=== PATIENT | female | born 1990 | race Caucasian/White ===

== ENCOUNTER → 2019-03-09 10:01 | Outpatient (CLI) | payer OTHER, SELFPAY ==
--- NOTE | 2019-03-09 10:04 | DI.US.S_ITS ---
PROCEDURE: US OB <= 14 WEEKS FETUS INDICATIONS: DATING AND VIABILITY OUTSIDE/PRIOR DATING DATA: Last menstrual period (LMP): 01/16/19. LMP-based estimated date of delivery (MARTI): 10/23/19. First dating scan (date and location): 03/09/19. Estimated date of delivery (MARTI) from first dating scan: 10/19/18. TECHNIQUE: Real-time scanning was performed of the fetus and maternal pelvic organs, with image documentation. Endovaginal scanning was also performed to better visualize the fetus and maternal ovaries. COMPARISON: None. FINDINGS: Embryo: [place]-rump length 1.6 cm correlates with a gestational age of 8 weeks 0 days, plus or -5 days. heart rate at 163 beats per minute is present. Measurement variability in dating: +/- 4 weeks by LMP, +/- 7 days by mean sac diameter (use before 6 weeks gestation if crown-rump length not able to be measured), +/- 5 days by crown-rump length (up to 8 weeks 6 days gestation), +/- 7 days by crown-rump length (up to 13 weeks 6 days gestation). Maternal organs: Ovaries: corpus luteum cyst on the right, not seen on the left due to bowel gas.. Limited images through the kidneys demonstrate no hydronephrosis. IMPRESSION: Single living intrauterine gestation with delivered a projected be centered on 10/19/18, plus or -5 days. Followup anatomic survey at 21 weeks gestation is recommended. Dictated by: Familia Carranza M.D. on 03/09/2019 at 14:16 Approved by: Familia Carranza M.D. on 03/09/2019 at 14:17
[2019-03-09 11:52] LABS: Appearance Urine UA CLEAR; Bilirubin Urine UA NEGATIVE (NEGATIVE); Color Urine UA YELLOW; Glucose Urine UA NEGATIVE (Negative); Ketones Urine UA NEGATIVE (NEGATIVE); Leukocyte Esterase Urine UA TRACE (NEGATIVE); Nitrite Urine UA NEGATIVE (Negative); Occult Blood Urine UA NEGATIVE (Negative); Protein Urine UA NEGATIVE (Negative); Specific Gravity Urine UA <=1.005 (1.000-1.035); Urobilinogen Urine UA 0.2 E.U./dL (0.2); pH Urine UA 6.5 (4.5-8.0)
[2019-03-09 11:55] LABS: Bacteria Urine None Seen; RBC Urine None Seen (0-5/HPF)
[2019-03-09 12:05] LABS: WBC Urine 0-1/HPF (0-5/HPF)
[2019-03-09 12:09] LABS: Add Manual Diff / Slide Review NO; Basophils Absolute Auto 100 /uL (0-100); Basophils Percent Auto 0.4 % (0-2); Eosinophils Absolute Auto 300 /uL (0-450); Hematocrit 40.2 % (36-46); Hemoglobin 13.5 g/dL (12.0-16.0); Lymphocytes Absolute Auto 2400 /uL (1100-4500); Lymphocytes Percent Auto 17.9 % (25-40); Mean Corpuscular HGB Conc 33.6 % (30-36); Mean Corpuscular Hemoglobin 28.2 PG (26-34); Monocytes Absolute Auto 900 /uL (0-900); Monocytes Percent Auto 6.5 % (3-14); Neutrophils Absolute Auto 9900 /uL (1500-7000); Neutrophils Percent Auto 73.2 % (50-75); Platelet Count 329 X10^3/uL (150-400); Red Blood Cell Count 4.78 X10^6/uL (4.0-5.2); Red Cell Distribution Width 14.2 % (11.6-14.8); White Blood Cell Count 13.5 X10^3/uL (4.5-11.0)
[2019-03-09 12:37] LABS: Rubella Antibody IgG 32.4 IU/mL (>15)
[2019-03-09 12:59] LABS: HIV 1 and 2 Antibody NEGATIVE (NEGATIVE); Hep C Virus Ab w/Reflex Quant NEGATIVE s/c (NEGATIVE)
[2019-03-09 16:34] LABS: Hepatitis B Surface Antigen NEGATIVE s/c (NEGATIVE)
[2019-03-11 14:19] LABS: RPR Screen Nonreactive (Nonreactive)
== END ==
PROVIDERS: PCP Family Medicine; Visit Provider Family Medicine
DX: Z34.81 Encounter for supervision of other normal pregnancy, first trimester (principal); Z3A.08 8 weeks gestation of pregnancy
CPT/HCPCS: 36415; 76801; 80055; 81003; 81015; 86703; 86787; 86803; 86850; 86900; 86901; 87077; 87086; 87147

== ENCOUNTER → 2019-05-14 15:11 | Outpatient (CLI) | payer OTHER, SELFPAY ==
[2019-05-21 10:55] LABS: AFP, Serum 24.7 ng/mL; Cigarette Smoker NO; Donated Egg NOT GIVEN; Donor Egg Age NOT GIVEN; Estriol, Free 0.96 ng/mL; Inhibin A, Dimeric 78 pg/mL; Maternal Ethnicity CAUCASIAN; Maternal Weight 220 lbs; Number of Fetuses 1; Previous Pregnancy Down Syndro NOT GIVEN; hCG, MoM 0.61
== END ==
PROVIDERS: PCP Family Medicine; Visit Provider Family Medicine
DX: Z34.92 Encounter for supervision of normal pregnancy, unspecified, second trimester (principal)
CPT/HCPCS: 36415; 82105; 82677; 84702; 86336

== ENCOUNTER → 2019-05-26 14:34 | Outpatient (CLI) | payer OTHER, SELFPAY ==
--- NOTE | 2019-05-26 14:35 | DI.US.S_ITS ---
PROCEDURE: US OB >= 14 WEEKS FETUS INDICATIONS: ANATOMY SCAN OUTSIDE/PRIOR DATING DATA: Last menstrual period (LMP): 01/16/19. LMP-based estimated date of delivery (MARTI): 10/23/19. First dating scan (date and location): 03/09/19. Estimated date of delivery (MARTI) from first dating scan: 10/19/19. TECHNIQUE: Real-time scanning was performed of the fetus, with image documentation and biometric measurements. Endovaginal scanning: Not performed COMPARISON: None. FINDINGS: General: A single living intrauterine gestation is present. Presentation: Variable Placenta: Placental position is posterior, without previa. Amniotic fluid index: 16.5 cm, normal range is 5-24 cm. heart rate: 147 beats per minute. Maternal cervical canal: 4.1 cm long. Normal lower limit is 2.5 cm. biometrics: Biparietal diameter: 4.6 cm, 19 weeks 6 days Head circumference: 16.9 cm, 19 weeks 4 days Abdominal circumference: 15.5 cm, 20 week one day Femur length: 3.1 cm, 19 week 4 day Estimated gestational age from initial scan: 19 week one day Composite gestational age from present scan: 19 week 5 days Estimated weight and percentile: 317 g, 85% Measurement variability for biometric dating: +/- 7 days from 14 weeks to 15 weeks 6 days gestation, +/- 10 days from 16 weeks to 21 weeks 6 days gestation, +/- 2 weeks from 22 weeks to 27 weeks 6 days gestation, +/- 3 weeks for 28 weeks gestation or later. weight reference: 4500 g or EFW >90/95% is considered macrosomia or large for gestational age. EFW <10% is small for gestational age. EFW 5% or less is considered intra-uterine growth restriction. Anatomic survey: Neuro: Ventricles are non-dilated at less than 10 mm. Cisterna magna is normal at 3-11 mm. Cerebellum is normal in size and morphology. Nuchal skin fold: Normal at less than 6 mm between 14-21 weeks gestational age. Face: Nose and lips, facial profile are normal. Spine: No evidence for spina bifida. Heart: 4-chambered heart is present, with normal ventricular outflow tracts. Diaphragm: Diaphragm is intact. Stomach: Left-sided stomach is present. Kidneys: No hydronephrosis. Bilateral renal pelvis measures 3.8 mm. Normal is less than 5 mm in 2nd trimester, less than 7 mm in 3rd trimester. Cord: 3-vessel cord has orthotopic insertion. Bladder: Normal in size. Extremities: All 4 extremities identified. IMPRESSION: Single live intrauterine with normal anatomic survey. Dictated by: Addy Saini M.D. on 05/26/2019 at 17:53 Approved by: Addy Saini M.D. on 05/26/2019 at 17:56
== END ==
PROVIDERS: PCP Family Medicine; Visit Provider Family Medicine
DX: Z34.92 Encounter for supervision of normal pregnancy, unspecified, second trimester (principal)
CPT/HCPCS: 76811

== ENCOUNTER → 2019-08-01 08:28 | Outpatient (CLI) | payer OTHER, SELFPAY ==
[2019-08-01 10:20] LABS: Hematocrit 33.9 % (36-46); Hemoglobin 11.4 g/dL (12.0-16.0)
[2019-08-01 10:25] LABS: GTT (PREG) 1 Hour PP 50gm Dose 124 mg/dL (76-139)
== END ==
PROVIDERS: PCP Family Medicine; Visit Provider Family Medicine
DX: Z34.90 Encounter for supervision of normal pregnancy, unspecified, unspecified trimester (principal); Z3A.26 26 weeks gestation of pregnancy
CPT/HCPCS: 36415; 82950; 85014; 85018

== ENCOUNTER → 2019-09-25 10:02 | Outpatient (CLI) | payer OTHER, SELFPAY ==
[2019-09-26 13:17] LABS: Strep Grp B PCR NEG for Grp B Strep
== END ==
PROVIDERS: PCP Family Medicine; Visit Provider Family Medicine
DX: Z3A.36 36 weeks gestation of pregnancy (principal)
CPT/HCPCS: 87653

== ENCOUNTER 2019-10-26 17:51 | Inpatient (IN) | payer OTHER, SELFPAY ==
[2019-10-26] MEDS: DINOPROSTONE VAG (CERVIDIL) 10 MG VAG (19:00)
[2019-10-26] MEDS: LACTATED RINGERS 1,000 ML 100 ML IV (19:00)
[2019-10-26 19:17] VITALS: BP 123/80
[2019-10-26 19:30] LABS: Add Manual Diff / Slide Review NO; Basophils Absolute Auto 100 /uL (0-100); Basophils Percent Auto 0.5 % (0-2); Eosinophils Absolute Auto 100 /uL (0-450); Eosinophils Percent Auto 1.1 % (2-4); Hematocrit 33.7 % (36-46); Lymphocytes Absolute Auto 1900 /uL (1100-4500); Lymphocytes Percent Auto 15.3 % (25-40); Mean Corpuscular HGB Conc 32.5 % (30-36); Mean Corpuscular Hemoglobin 27.2 PG (26-34); Mean Corpuscular Volume 83.7 fL (80-100); Monocytes Absolute Auto 800 /uL (0-900); Monocytes Percent Auto 6.5 % (3-14); Neutrophils Absolute Auto 9700 /uL (1500-7000); Neutrophils Percent Auto 76.6 % (50-75); Platelet Count 241 X10^3/uL (150-400); Red Blood Cell Count 4.03 X10^6/uL (4.0-5.2); Red Cell Distribution Width 16.1 % (11.6-14.8); White Blood Cell Count 12.7 X10^3/uL (4.5-11.0)
[2019-10-26] MEDS: ZOLPIDEM 5 MG TABLET PO (22:56)
--- NOTE | 2019-10-27 03:50 | PM.OBHP.1 ---
OB HPI Date/Time Date of admission: 10/26/19 Date Patient Seen: 10/27/19 History of Present Condition Chief complaint: INDUCTION : 2 Para: 1 Estimated Date of Delivery: 10/22/19 Estimated Gestational Age (weeks): 40w5d Narrative: Emily Escudero is a 29 year old at 40 weeks and 5 days gestation here for elective induction. Her is currently deployed at home for a short period of time. has been uncomplicated with normal ultrasounds and labs. She does have a history of genital herpes and has been taking prophylactic acyclovir the last month of . Indications Indication for induction OB: other (Elective, home from deployment) History of Present care: good care, initiated at week # (8), number of visits (13) and pounds weight gain (31) Dating criteria: LMP confirmed by 1st trimester US Ultrasounds: normal mid trimester US Obstetrical complications: none Medical complications: none Preadmission Labs Blood type: O (+) positive -: Antibody screen: negative, GBS status: negative, HBsAG: negative, HIV: negative and RPR/VDLR: negative -: Rubella: immune and Varicella: immune HCT: 40.2 HCAB: negative PAP: Normal Quad screen: Normal Urine: Negative 1 hr GTT: 124 Prior (ies) History: 04/17/15 at 40 weeks, 8 lb 10 oz female. SROM without active labor followed by Pitocin. Epidural worked on 1/2 of her body and she had a syncopal event shortly after delivery. Breast-fed 11 months. Evaluation Evaluation Baseline heart rate: 130 Variability: Moderate (11-25) monitor accelerations: Present monitor decelerations: Absent Contraction Frequency (minutes): 5 Uterine Contraction Intensity: Mild Category of Tracing: I Cervical dilation (cm): 2 Cervical effacement (%): 75 station: -1 Laboratory results: Laboratory Tests 10/26/19 10/26/19 18:35 18:35 WBC 12.7 H RBC 4.03 Hgb 11.0 L Hct 33.7 L MCV 83.7 MCH 27.2 MCHC 32.5 RDW 16.1 H Plt Count 241 Neut % (Auto) 76.6 H Lymph % (Auto) 15.3 L [place] % (Auto) 6.5 Eos % (Auto) 1.1 L Baso % (Auto) 0.5 Neut # (Auto) 9700 H Lymph # (Auto) 1900 [place] # (Auto) 800 Eos # (Auto) 100 Baso # (Auto) 100 Blood Type O Positive Antibody Screen Negative PFSH Medical History Herpes genitalis (Chronic) Normal colonoscopy (Resolved) Social History marital status: number of children: 1 occupational status: employed Smoking Status: Never smoker alcohol intake: former substance use type: does not use Meds Home Medications and Allergies Home Medications Medication Instructions Recorded Confirmed Type prenat.vits,salud,uvd-cpfm-triqe 1 tab PO DAILY 03/09/19 10/27/19 History Double Electric Breast Pump and #1 each 10/09/19 10/09/19 Rx supplies Allergies Allergy/AdvReac Type Severity Reaction Status Date / Time sulfamethoxazole AdvReac Mild Hives Verified 03/16/19 13:56 [From Bactrim] trimethoprim [From Bactrim] AdvReac Mild Hives Verified 03/16/19 13:56 Review of Systems Review of Systems ROS Unobtainable: All systems reviewed & are unremarkable except as noted in HPI and below Exam Vital Signs (past 8 hours): Temperature 36.2? blood pressure 105/60 heart rate 77 Const General: healthy appearing and comfortable HENMT Head: normal to inspection Ears: hearing grossly normal bilaterally Nose: external nose normal Face and sinus: normal facial exam Mouth: oral mucosae normal Eyes General: appearance normal, both eyes and all related structures Neck Neck: normal visual inspection Resp Effort & Inspection: normal respiratory effort Auscultation: clear to auscultation bilaterally Cardio Rate: regular rate Rhythm: regular rhythm Heart Sounds: no murmurs GI Other: Gravid External Female Exam: external appearance normal Manual OB Exam: dilated 2, effaced 75% and station -1 Presentation: vertex Estimated Weight (lbs): 8 Back/Spine/Pelvis Back: normal to inspection Skin General: no rashes or lesions noted Extrem General: normal to inspection and no pedal edema Objective Labs Result Diagrams: 10/26/19 18:35 Labs: Laboratory Results - last 24 hr 01/27/20 01/27/20 18:35 18:35 WBC 12.7 H RBC 4.03 Hgb 11.0 L Hct 33.7 L MCV 83.7 MCH 27.2 MCHC 32.5 RDW 16.1 H Plt Count 241 Neut % (Auto) 76.6 H Lymph % (Auto) 15.3 L [place] % (Auto) 6.5 Eos % (Auto) 1.1 L Baso % (Auto) 0.5 Neut # (Auto) 9700 H Lymph # (Auto) 1900 [place] # (Auto) 800 Eos # (Auto) 100 Baso # (Auto) 100 Blood Type O Positive Antibody Screen Negative Assessment and Plan Assessment and Plan Assessment and Plan narrative: 29-year-old at 40 weeks and 5 days gestation here for elective induction. is home from deployment for a short period of time. Patient received Cervidil overnight. Rodriguez score this morning is 8. GBS negative. Plan - Pitocin per protocol - Epidural upon request - Anticipate
[2019-10-27] MEDS: LACTATED RINGERS 1,000 ML 100 ML IV ×2 (07:57→16:50)
[2019-10-27] MEDS: OXYTOCIN PREMIX 30 UNIT/500 ML PLAST..BAG IV (08:01)
--- NOTE | 2019-10-27 12:42 | PM.OBPNLAB ---
Date/Time Date Patient Seen: 10/27/19 Time Patient Seen: 12:42 Pain Control Pain control: tolerating well Comments: Getting more uncomfortable with contractions, rates as 4-5/10. Pelvic Exam Dilation (cm): 3 Effacement (%): 80 station: -1 Amniotic membrane status: Ruptured ([place] tinged fluid) Contractions Pitocin rate (mU/min): 12 Contraction frequency (min): 2 Contraction pattern: Regular Contraction intensity: Moderate Status status: Category l Heart Rate Baseline: 130 Monitor Accelerations: Present Monitor Decelerations: Absent Monitor Variability: Moderate Assessment and Plan Assessment: induction ongoing Plan: continuous present management
--- NOTE | 2019-10-27 16:25 | PM.OBPNLAB ---
Date/Time Date Patient Seen: 10/27/19 Time Patient Seen: 16:25 Pain Control Pain control: tolerating well and epidural Comments: Comfortable with epidural Pelvic Exam Dilation (cm): 5 Effacement (%): 80 station: -1 Amniotic membrane status: Ruptured ([place] tinged fluid) Contractions Pitocin rate (mU/min): 16 Contraction frequency (min): 2 Contraction pattern: Regular Contraction intensity: Strong/Firm Status status: Category ll Heart Rate Baseline: 130 Monitor Accelerations: Present Monitor Decelerations: Variable Monitor Variability: Moderate Assessment and Plan Assessment: induction ongoing Plan: continuous present management
--- NOTE | 2019-10-27 17:48 | P.PCNOB_ITS ---
Labor & Delivery Delivery date: 10/27/19 Cervical ripening method: per Cervidil protocol Induction method: per pitocin protocol Delivery augmentation: rupture of membranes Delivery monitor: external FHT Route of delivery: L&D Laceration Description: Vaginal - 2nd Degree Delivery repair: vicryl Estimated blood loss (mL): 350 Anesthesia type: Epidural Narrative: Patient is a 29-year-old at 40 weeks and 5 days who gave on 10/27/19 at 5:25 p.m.. MARTI: 10/22/19 Hospital problems: Forty weeks Epidural analgesia STAGE I: Labor Patient was brought in for cervical ripening with Cervidil then given Pitocin per protocol. Artificial rupture of membranes with clear fluid at 12:30 p.m.. Patient received an epidural adequate pain control. heart tones were category 1 and 2 throughout stage I due to intermittent variable decelerations. STAGE II: Delivery Patient was complete and pushed over 2 contractions to deliver a vigorous male in the left occiput anterior position with the right hand near the face. Infant was immediately placed on mother's abdomen. Cord was clamped and cut after 1 minutes delay. Apgars were 9 and 9. No resuscitation of the required beyond drying, stimulating and suction. STAGE III: Placenta/Cord Placenta delivered at 17:28 after active management and appeared intact with a three-vessel cord. Pitocin bolus given after delivery of placenta. A short second-degree vaginal laceration was repaired in the usual fashion with 4 0 Vicryl. Hemostasis achieved. Fundus firm below umbilicus. EBL: 350 mL. Needle and sponge counts were correct. The vagina was inspected and no items were left in situ. Patient was doing well with her and at bedside. [place] Baby 1: gender: Male Presentation: vertex Placenta delivery description: Spontaneous cord vessel description: 3 Vessels score (1 min): 9 score (5 min): 9
[2019-10-27] MEDS: DERMOPLAST SPRAY 20% 60 ML 1 SPRAY TOP (20:16)
[2019-10-27] MEDS: LANOLIN OINT 7 GM 1 APPLIC TOP (20:16)
[2019-10-27] MEDS: ACETAMINOPHEN 325 MG TABLET 650 MG PO (23:47)
[2019-10-27] MEDS: IBUPROFEN 600 MG TABLET PO (23:47)
[2019-10-28 07:00] LABS: Hemoglobin 9.4 g/dL (12.0-16.0)
[2019-10-28] MEDS: DOCUSATE 100 MG CAPSULE PO (07:28)
[2019-10-28] MEDS: IBUPROFEN 600 MG TABLET PO (07:29)
[2019-10-28] MEDS: PRENATAL VIT,CALC/IRON/FOLIC 1 TABLET 1 TAB PO (07:29)
--- NOTE | 2019-10-28 08:30 | PM.OBDS.1 ---
Discharge Providers Provider Date of admission: 10/26/19 17:51 Discharge Date: 10/28/19 Primary care physician: Marta Link DO Consults: 10/28/19 17:47 Consult to Visiting Nurse Routine Comment: Discharge provider: Marta Link DO Summary Hospital Course Date Patient Seen: 10/28/19 Time Patient Seen: 08:17 Procedures: Spontaneous vaginal delivery Epidurla analgesia Hospital Course: Patient is a 29 year old G2 now P2 after uncomplicated on 10/26/19 at 40 weeks and 5 days gestation. Patient was brought in for elective induction as her was home from deployment. She received Cervidil for cervical ripening followed by pitocin and AROM. Received an epidural with adequate pain control. She progressed well and delivered a vigorous male infant. A second degree vaginal laceration was repaired in the usual fashion. course uncomplicated. Patient was ambulating, voiding and passing flatus. Vaginal bleeding moderate and decreasing. Pain controlled with minimal ibuprofen. going well, no issues in the . Patient advised to call for fevers, bleeding through more than a pad an hour or severe pain. Peripartum Data Delivery Method: Natural Vaginal Laceration description: Vaginal - 2nd Degree complications: none [place] 1: Gender: Male Disposition of : home Discharge Diagnosis (1) 40 weeks gestation of : Status: Acute (2) Spontaneous vaginal delivery: Status: Acute Problem Details: x2 Status at Discharge Functional status at discharge: independent ambulation Overall status at discharge: patient is progressing back to baseline Time Spent with Patient Time attestation: Total time spent providing and/or coordinating discharge services: Time spent: Less than 30 minutes Objective Labs Result Diagrams: 10/28/19 06:32 Labs: Laboratory Results - last 24 hr 10/28/19 06:32 Hgb 9.4 L Hct 28.0 L Exam Vital Signs (past 8 hours): Temperature 98.4? blood pressure 129/80 heart rate 111 respirations 20 Narrative Exam Narrative: General: Awake and alert, no acute distress. HEENT: NCAT, EOMI, moist oral mucosa CV: Regular rate and rhythm, no murmurs, rubs or gallops Lungs: CTAB, no wheezes, rales, or rhonchi Abdomen: Soft, nontender; bowel tones active; uterus firm 1 cm below umbilicus Extremities: Warm, no edema, 2+ pedal pulses bilaterally Discharge Plan Discharge Plan Patient Disposition: Home Discharge orders & Medications Prescriptions: New docusate sodium [DOK] 100 mg Capsule 100 mg PO DAILY Qty: 30 RF: 0 ibuprofen 600 mg Tablet 600 mg PO Q6HR PRN (Reason: Pain, Mild (1-3)) Qty: 30 RF: 0 ferrous gluconate 236 mg (27 mg iron) tablet 236 mg PO DAILY Qty: 30 RF: 0 Continued (DME) Double Electric Breast Pump and supplies Qty: 1 RF: 0 prenat.vits,salud,aen-luvw-jahrj tablet 1 tab PO DAILY RF: 0 Follow up/Referrals: Marta Link DO [Primary Care Provider] - 6 Weeks (Appointment with , Thrusday, October at 11:15 am) Visit Report/Discharge Packet Instructions: DI for Labor and Delivery, Vaginal Visit Report Forms: Patient Portal/API, Stroke Signs & Symptoms Discharge Data Primary Care Provider: Marta Link Discharges patient from system. Discharge Date/Time: 10/28/19 15:53
[2019-10-28 12:53] VITALS: BP 123/80
[2019-10-28 14:57] VITALS: BP 130/81; PULSE 82; RESP 16; TEMP 36.5
== END 2019-10-28 15:53 | disposition home or self-care (01) | DRG 807 ==
PROVIDERS: Admitting Provider Family Medicine; PCP Family Medicine; Visit Provider Family Medicine
DX: O98.32 Other infections with a predominantly sexual mode of transmission complicating childbirth (principal); B00.9 Herpesviral infection, unspecified; O70.1 Second degree perineal laceration during delivery; Z37.0 Single live birth; Z3A.40 40 weeks gestation of pregnancy
CPT/HCPCS: 01967; 36415; 59050; 59400; 85014; 85018; 85025; 86850; 86900; 86901; G0379; J2590